=== PATIENT | female | born 1965 | race Caucasian/White ===

== ENCOUNTER 2017-03-06 14:12 | Inpatient (IN) ==
[2017-03-06] MEDS ORDERED: IOPAMIDOL 100 ML BOTTLE IV ONE (14:13)
--- NOTE | 2017-03-06 14:31 | Cat Scan Report ---
History: Acute stroke symptoms Findings: The brain was imaged without contrast at 2.5 mm intervals. There is a moderate amount of densely calcified plaque in the cavernous portions of both internal carotids. There is a small calcified plaque in the left vertebral artery at the level of the foramen magnum. There is a moderate size acute nonhemorrhagic infarct in the left parietal lobe. It measures approximately 2.7 x 4.3 cm. There is effacement of the sulci and slight flattening along the lateral wall of the HR the left lateral ventricle. No other infarct is seen. There is no hemorrhage. Patient has age-related degenerative changes with atrophy in the frontal and temporal lobes. Impression: Moderate size acute infarct in the left parietal lobe Dr. Mejía was called with the results at 2:27 PM Interpreted and Authenticated by: Justin Bonilla 03/06/17
[2017-03-06 14:44] LABS: Basophils # (Auto) 0.1 K/mcL (0.0-0.3); Basophils % (Auto) 0.5 % (0.0-2.0); Eosinophils # (Auto) 0.3 K/mcL (0.0-0.7); Eosinophils % (Auto) 2.4 % (0.0-7.0); Granulocytes % (Auto) 53.4 % (38.0-78.0); Lymphocytes % (Auto) 37.6 % (15.5-49.0); Mean Cell Volume 99.1 fL (80.0-100.0); Mean Corpuscular Hemoglobin 33.7 pg (26.0-34.0); Monocytes # (Auto) 0.8 K/mcL (0.1-0.9); Monocytes % (Auto) 6.1 % (1.0-12.0); Platelet Count 266 K/mcL (140-440); RBC 3.68 M/mcL (4.00-5.20)
[2017-03-06 15:03] LABS: ALT/SGPT 19 U/l (0-40); Albumin 3.4 gm/dL (3.2-5.2); Alkaline Phosphatase 105 U/L (39-117); Blood Urea Nitrogen 16 mg/dl (6-20)
[2017-03-06] MEDS ORDERED: LORazepam 2 MG/ML VIAL IV PRN (15:50)
[2017-03-06] MEDS ORDERED: LORazepam 2 MG/ML VIAL IV ONE (16:47)
[2017-03-06] MEDS ORDERED: diphenhydrAMINE 50 MG/ML VIAL ONE (17:04)
[2017-03-06] MEDS ORDERED: diphenhydrAMINE 50 MG/ML VIAL IV ONE (17:11)
--- NOTE | 2017-03-06 18:01 | Cat Scan Report ---
History: Stroke symptoms with expressive aphasia Findings: Nonionic contrast was injected. Arterial phase images were acquired from the aortic arch through the brain. Sagittal and coronal reformats along with MIP images were created separately of the head and neck. Neck: Aortic arch is normal in caliber and there is no aneurysm or dissection. There are a few scattered plaques at the origins of the left common carotid and subclavian artery. The innominate artery is normal. There is a large amount of calcified plaque in the right carotid bifurcation. This is causing a 75% stenosis at the origin of the right internal carotid and less than 25% stenosis origin of the external carotid. The mid distal right internal carotid are normal. There is mild plaque formation in the left carotid bifurcation. This is not causing significant stenosis of the internal are external carotids. The right vertebral artery is hypoplastic. The left vertebral artery is relatively small but normal in caliber. No plaque formation is seen within the vertebral arteries and there is no evidence of dissection. Patient has a partially calcified adenoma in the right adrenal gland. Head: The intracranial portions of both vertebral arteries as well as the basilar artery are hypoplastic. The basilar artery is less than 2 mm in diameter. The cerebellar arteries are patent. The peel one segments of both posterior cerebral arteries are hypoplastic. There are patent posterior communicating arteries which provide most of the blood flow to the posterior cerebral arteries. The cavernous portions of both internal carotids have eccentric plaques along the chua. These are not causing significant stenosis. The anterior and middle cerebral arteries are normal in caliber and there is no evidence of thrombosis or stenosis. On the preceding unenhanced head CT a moderate size infarct is detected in the left parietal lobe. There has been partial reperfusion of brain parenchyma in this region. However, this portion of the brain is relatively hypovascular compared to the contralateral right parietal lobe. Impression: Hypoperfusion of the left parietal lobe due to diminished circulation in the posterior third order branches of the left middle cerebral artery. 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 Mejía was called with results Interpreted and Authenticated by: Justin Bonilla 03/06/17
[2017-03-06] MEDS ORDERED: ASPIRIN 81 MG TAB.CHEW CHEWED ONE (19:55)
--- NOTE | 2017-03-06 19:57 | Emergency Department Note ---
Neuro HPI - General Chief Complaint: Stroke Symptoms Stated Complaint: Stroke symptoms. Expressive aphasia. Time Seen by Provider: 03/06/17 14:25 Source: patient Mode of arrival: ambulatory Limitations: no limitations - History of Present Illness HPI Narrative: 51-year-old female HIV patient who was last seen normal last evening came in today for focal deficit of expressive aphasia with her brother. He actually reports that she has been acting strangely for the last few days-he has been moving her down from [facility] [place]. Apparently she went a little crazy and gambled away her entire rent money. She was still talking normally last night but then today when he went to check on her she could not answer questions appropriately, having trouble word finding and was confused. I am unable to get meaningful interview or review of systems from her as she cannot answer questions directly. She is having a lot of trouble following directions as well. However she is walking and moving around without any difficulty; sitting up playing on her phone etc. We did request records from [facility] as well as [facility] [place]-much of her history is from the records On Anticoagulants: No - Related Data Home Medications: Home Medications Medication Instructions Recorded Confirmed No Known Home Meds [No Known Home 03/06/17 03/06/17 Meds] Allergies/Adverse Reactions: Allergies Allergy/AdvReac Type Severity Reaction Status Date / Time No Known Drug Allergies Allergy Unverified 03/06/17 17:24 Review of Systems Limitations: ROS unobtainable due to patients medical condition Past Medical History - Past Medical History Attestation: Yes: The following information was validated with the patient. Medical history: Reports: HIV/AIDS, other (Chronic pain) Surgical history ED: Reports: hysterectomy - Social History smoking status: Current every day smoker Physical Exam Overweight female no acute distress. Normocephalic atraumatic. Conjunctive are clear sclerae nonicteric. No nasal discharge or congestion. Oropharynx is pink and moist. Neck is supple without lymphadenopathy or thyromegaly. No carotid bruit. Heart is regular rate and rhythm no murmurs appreciated. Lungs clear to auscultation bilaterally without wheezes rales rhonchi or respiratory distress. Abdomen soft nontender nondistended. No pedal edema. +2 radial pulse. No dysarthria but she does have expressive aphasia-significant trouble with word finding but she is able to answer yes or no questions. Initially she could not follow commands but this gradually improved over the course of her hospital stay. No facial asymmetry. Cranial nerves II through XII are grossly intact. Normal strength in all 4 appendages. Unable to fully evaluate sensation secondary to expressive aphasia. NIH score was 4 and ABCD score was 3 - General Limitations: no limitations Course Vital Signs Temperature 98.4 F 03/06/17 14:12 Pulse Rate 71 03/06/17 14:12 Respiratory Rate 18 03/06/17 14:12 Blood Pressure 105/63 03/06/17 14:12 Pulse Oximetry (%) 97 03/06/17 14:12 Temperature 98.4 F 03/06/17 14:12 Pulse Rate 67 03/06/17 15:46 Respiratory Rate 16 03/06/17 19:03 Blood Pressure 123/100 03/06/17 19:01 Pulse Oximetry (%) 94 03/06/17 15:46 Neuro Symptoms/Deficit - Lab Data Lab results reviewed: Yes I reviewed the patient's lab results. Result diagrams: 03/06/17 14:21 03/06/17 14:20 Lab Results 03/06/17 03/06/17 03/06/17 Range/Units 14:20 14:21 14:21 WBC 13.4 H (4.5-11.0) K/mcL RBC 3.68 L (4.00-5.20) M/mcL Hgb 12.4 (12.0-15.0) g/dL Hct 36.5 (36.0-48.0) % POC Hct 38.0 (36.0-48.0) % MCV 99.1 (80.0-100.0) fL MCH 33.7 (26.0-34.0) pg MCHC 34.0 (31.0-36.0) g/dL RDW 16.0 H (11.5-14.5) % Plt Count 266 (140-440) K/mcL MPV 8.1 (7.4-10.4) fL Gran % 53.4 (38.0-78.0) % Lymph % (Auto) 37.6 (15.5-49.0) % [place] % (Auto) 6.1 (1.0-12.0) % Eos % (Auto) 2.4 (0.0-7.0) % Baso % (Auto) 0.5 (0.0-2.0) % Gran # 7.2 (1.8-8.0) K/mcL Lymph # (Auto) 5.0 H (1.5-4.8) K/mcL [place] # (Auto) 0.8 (0.1-0.9) K/mcL Eos # (Auto) 0.3 (0.0-0.7) K/mcL Baso # (Auto) 0.1 (0.0-0.3) K/mcL POC PT 14.8 H (11.9-14.5) sec POC INR 1.2 (0.9-1.2) APTT 35 (20-37) sec POC Sodium 139 (133-145) mmol/L Sodium 140 (133-145) mmol/L POC Potassium 4.0 (3.3-5.1) mmol/L Potassium 4.2 (3.3-5.1) mmol/L POC Chloride 103 (96-108) mmol/L Chloride 101 (96-108) mmol/L Carbon Dioxide 27 (22-30) mmol/L POC Total CO2 27 (22-30) mmol/L Anion Gap 12.0 (8-16) POC BUN 16 (6-20) mg/dl BUN 16 (6-20) mg/dl Creatinine 0.7 (0.6-1.1) mg/dl POC Creatinine 0.8 (0.6-1.1) mg/dl GFR Calculation 99 Glucose 125 H (70-105) mg/dL POC Glucose 121 H (70-105) mg/dL Calcium 8.5 L (8.6-10.4) mg/dl POC WB Ioniz Calcium 1.15 L (1.16-1.32) mmol/L Total Bilirubin 0.3 (0.0-1.0) mg/dL AST 20 (0-37) U/l ALT 19 (0-40) U/l Alkaline Phosphatase 105 (39-117) U/L Troponin T (0-0.03) ng/ml Total Protein 6.7 (5.9-8.4) gm/dL Albumin 3.4 (3.2-5.2) gm/dL Globulin 3.3 (2.2-3.7) gm/dL Albumin/Globulin Ratio 1.0 (1.0-2.3) 03/06/17 Range/Units 14:21 WBC (4.5-11.0) K/mcL RBC (4.00-5.20) M/mcL Hgb (12.0-15.0) g/dL Hct (36.0-48.0) % POC Hct (36.0-48.0) % MCV (80.0-100.0) fL MCH (26.0-34.0) pg MCHC (31.0-36.0) g/dL RDW (11.5-14.5) % Plt Count (140-440) K/mcL MPV (7.4-10.4) fL Gran % (38.0-78.0) % Lymph % (Auto) (15.5-49.0) % [place] % (Auto) (1.0-12.0) % Eos % (Auto) (0.0-7.0) % Baso % (Auto) (0.0-2.0) % Gran # (1.8-8.0) K/mcL Lymph # (Auto) (1.5-4.8) K/mcL [place] # (Auto) (0.1-0.9) K/mcL Eos # (Auto) (0.0-0.7) K/mcL Baso # (Auto) (0.0-0.3) K/mcL POC PT (11.9-14.5) sec POC INR (0.9-1.2) APTT (20-37) sec POC Sodium (133-145) mmol/L Sodium (133-145) mmol/L POC Potassium (3.3-5.1) mmol/L Potassium (3.3-5.1) mmol/L POC Chloride (96-108) mmol/L Chloride (96-108) mmol/L Carbon Dioxide (22-30) mmol/L POC Total CO2 (22-30) mmol/L Anion Gap (8-16) POC BUN (6-20) mg/dl BUN (6-20) mg/dl Creatinine (0.6-1.1) mg/dl POC Creatinine (0.6-1.1) mg/dl GFR Calculation Glucose (70-105) mg/dL POC Glucose (70-105) mg/dL Calcium (8.6-10.4) mg/dl POC WB Ioniz Calcium (1.16-1.32) mmol/L Total Bilirubin (0.0-1.0) mg/dL AST (0-37) U/l ALT (0-40) U/l Alkaline Phosphatase (39-117) U/L Troponin T < 0.01 (0-0.03) ng/ml Total Protein (5.9-8.4) gm/dL Albumin (3.2-5.2) gm/dL Globulin (2.2-3.7) gm/dL Albumin/Globulin Ratio (1.0-2.3) - Radiology Data Radiology results reviewed: Yes I reviewed the patient's radiology results. CT scan of the head without contrast shows a left parietal lobe infarct measuring 2.7 x 4.3 cm or moderate in size Follow-up CT angiogram of the neck and head shows hypoplastic cerebral arteries multiple, also third order arteries left MCA decreased perfusion in this area. Additionally 75% stenosis seen at internal carotid artery on the right. - EKG Data EKG attestation: Yes I reviewed and interpreted this EKG. EKG results narrative: EKG shows a rate of 70 normal sinus rhythm without evidence of ischemia Disposition Pt seen by [employer]ER/PA only: No Clinical Impression: CVA (cerebral vascular accident) Qualifiers: CVA mechanism: stenosis Precerebral and cerebral artery: unspecified cerebral artery Qualified Code(s): I63.50 - Cerebral infarction due to unspecified occlusion or stenosis of unspecified cerebral artery Summary: Initially worked up for acute stroke because of symptoms of expressive aphasia. Initially discussed left parietal stroke with Dr. Green, tele-stroke neurologist , who advised us to get the CTA Found to have left parietal lobe stroke moderate size likely secondary to hypoplastic cerebral arteries and decreased perfusion of the left MCA third third order cerebral arteries seen on CTA Discussed scenario with Dr. Horvath, another tele-stroke neurologist who took over for Dr. Green, she advised this patient was not eligible for intervention and that therefore we should keep her here in the hospital and do further workup I then discussed the scenario with Dr. Vu, our hospitalist who agreed to accept the patient for further workup and care. Patient was given aspirin per Dr. Baez recommendations Disposition: Xfer As Inpt ([facility]) Condition: Fair Referrals: Palma Mullen MD [Primary Care Provider] -
[2017-03-06 20:24] LABS: HDL Cholesterol 44 mg/dl (>40); LDL Cholesterol,Calculated 111 mg/dl (SEE CHART)
[2017-03-06 20:52] LABS: Appearance,Urine CLEAR; Bacteria,Urine 0 /hpf (0); Bilirubin,Urine NEG (NEG); Color,Urine YELLOW; Glucose,Urine (UA) NEGATIVE (NEG); Leukocyte Esterase,Urine NEG /uL (NEG); Mucus,Urine FEW /hpf (0); Nitrate,Urine NEG (NEG); Protein,Urine NEG (NEG); Specific Gravity,Urine 1.042 (1.000-1.035); Urine Blood 0.03 mg/dL (<0.03); Urine RBC 7 /hpf (0-1); Urine Squamous Epithelial Cell 1 /hpf (0-4); Urine WBC 1 /hpf (0-4); Urobilinogen,Urine NEG (NEG)
[2017-03-06] MEDS ORDERED: LORazepam 2 MG/ML VIAL IM ONE (21:25)
--- NOTE | 2017-03-06 21:37 | Internal Med History&Physical ---
Medical - H&P: HPI Patient information: Note initiated : 03/06/17 at 9:32 pm Service Date, if different from initiated Date: [] Patient: Cindy Almeida a 51 y/o F admitted on for Stroke Symptoms, Expressive Aphasia. Chief Complaint: [] History of present illness: Ms. Almeida is a 51 year old Female with h/o HIV/ AIDS, chr back pain issues, presented to the ER this afternoon after being unable to comprehend and unable to express her self. The patient brother was the primary history give to the ER. The patient was able to answer some questions but was mostly unable to provide a meaningful history. According to chart review, the patient has been more confused and not her self over the last 3-4 days, she gambled away a significant amount. Her brother was called when someonme noted that she was not making much sense on the telephone. The patient was therefore brought to the ER for further evaluation. In the ER she had a CT head done which showed acute CVA in the Moderate size acute infarct in the left parietal lobe, tele stroke was called and they did not feel pt needed tpa or any intervention. They did recommend CT Angio neck and head which showed Hypoperfusion of the left parietal lobe due to diminished circulation in the posterior third order branches of the left middle cerebral artery. 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 would benefit from outpatient IR/ Vascular eval for ICA stenosis. The patient was therefore admitted to the hospital for further evaluation The patient is ambulatory and does obey commands, moves around at will. The patient has h/o some cancer, and was followed by oncology, not sure what type, but one note mentioned hodgkins, She was on dilaudid for chr back pain which was given to her by JANETH albert unobtainable: due to mental status Medical - H&P: PMH Medical history: HIV/AIDs Chr back pain neuropathy hodgkins lymphoma Surgical history: hystrectemy Pertinent family history: unable to review Social history: lives by self smoker not sure of etoh/ substance issue pt did not report Medical - H&P: Meds Home Medications Medication Instructions Recorded Confirmed Type No Known Home Meds [No Known Home 03/06/17 03/06/17 History Meds] Allergies Allergy/AdvReac Type Severity Reaction Status Date / Time No Known Drug Allergies Allergy Unverified 03/06/17 17:24 Medical - H&P: Exam - Constitutional Vitals: Temp Pulse Resp BP Pulse Ox 98.4 F 67 16 123/100 94 03/06/17 14:12 03/06/17 15:46 03/06/17 19:03 03/06/17 19:01 03/06/17 15:46 Exam: GENERAL: The patient is a well-developed, well-nourished in no apparent distress. Is alert and oriented x2 (name and place once told its hospital) . VITAL SIGNS: Reviewed and as noted elsewhere. HEENT: Head is normocephalic and atraumatic. Extraocular muscles are intact. Pupils are equal, round, and reactive to light. Nares appeared normal. Mouth appears any without lesions. Mucous membranes are moist. NECK: Normal to inspection, Supple, No lymphadenopathy or thyromegaly. LUNGS: Air entry equal on both sides, no wheezing, crackles or rhonchi noted. No accessory muscles of respiration HEART: Regular rate and rhythm normal, S1 and S2 heard, no Gallop, S3 or Rub Noted, No Gross murmur heard. ABDOMEN: Soft, nontender, and nondistended. Positive bowel sounds. No hepatosplenomegaly was noted. EXTREMITIES: No cyanosis, clubbing, rash, lesions or edema. NEUROLOGIC: Cranial nerves II through XII are grossly intact. Motor and Sensory System Grossly Intact PSYCHIATRIC: anxious/ agitated behavior inappropriate behavior . SKIN: No ulceration or wounds noted, No jaundice, No rash noted. Medical - H&P: Reslt - Labs CBC & Chem 7: 03/06/17 14:21 03/06/17 14:20 Labs: Short CBC 03/06/17 Range/Units 14:21 WBC 13.4 H (4.5-11.0) K/mcL Hgb 12.4 (12.0-15.0) g/dL Hct 36.5 (36.0-48.0) % Plt Count 266 (140-440) K/mcL BMP 03/06/17 14:20 Sodium 140 Potassium 4.2 Chloride 101 Carbon Dioxide 27 BUN 16 Creatinine 0.7 Glucose 125 H Calcium 8.5 L Cardiac Enzymes 03/06/17 Range/Units 14:21 Troponin T < 0.01 (0-0.03) ng/ml Liver Function 03/06/17 Range/Units 14:20 Total Bilirubin 0.3 (0.0-1.0) mg/dL AST 20 (0-37) U/l ALT 19 (0-40) U/l Alkaline Phosphatase 105 (39-117) U/L Albumin 3.4 (3.2-5.2) gm/dL Urine 03/06/17 Range/Units 20:07 Urine Color Yellow Urine Appearance Clear Urine pH 5.0 (5.0-9.0) Ur Specific [place] 1.042 H (1.000-1.035) Urine Protein Neg (NEG) mg/dL Urine Glucose (UA) Negative (NEG) mg/dL Medical - H&P: A/P (1) HIV disease Current visit: Yes Status: Acute (2) Chronic pain Current visit: Yes Status: Acute (3) CVA (cerebral vascular accident) Current visit: Yes Status: Acute - Narrative A/P Narrative: A/P CVA: Acute left parietal stroke on CT, Tele stroke advised workup here and noted no indication for transfer. Patient to be monitored on tele, EKG is NSR, Echo ordered, A1c, LDL and TSH check. 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 She was given asa 324 in the ER, will start her on asa 81, start on statin, check lipid and a1c adn tsh, get MRI of head without and with contrast in light of h/o lymphoma, HIV HIV: supposed to be on haart, will resume once dose verified, check cd4 counts. Unable to tell me who her ID physician is AMS: secondary to CVA vs HIV related. if MRI does not confirm CVA, will consider LP. Ativan prn to keep pt in room, ok for soft restraints as patient is agitated and trieds to remove medical leads. DVT hep sq Diet regular Full Code. Medical - H&P: Qual - Stroke Symptom Onset Unknown: No
[2017-03-06] MEDS ORDERED: OLANZapine 5 MG TABLET PO ONE ×2 (21:41→22:01)
[2017-03-06] MEDS ORDERED: NALOXONE HCL 0.4 MG/ML VIAL IV PRN (22:01)
[2017-03-06] MEDS ORDERED: IPRATROPIUM/ALBUTEROL 3 ML AMPUL.NEB NEB PRN (22:01)
[2017-03-06] MEDS ORDERED: oxyCODONE/APAP 5/325MG TABLET PO PRN (22:01)
[2017-03-06] MEDS ORDERED: ONDANSETRON 4 MG/2 ML VIAL IV PRN (22:01)
[2017-03-06] MEDS ORDERED: OLANZapine 2.5 MG TABLET PO ONE (22:01)
[2017-03-06] MEDS: HEPARIN 5,000 UNIT/ML VIAL SQ SCH (22:38)
[2017-03-06] MEDS: ATORVASTATIN 20 MG TABLET PO SCH (22:38)
[2017-03-07 01:41] LABS: Estimated Average Glucose(eAG) 105 mg/dL; Hemoglobin A1C 5.3 % HGB (4.0-6.0)
[2017-03-07 06:02] LABS: Basophils # (Auto) 0 K/mcL (0.0-0.3); Basophils % (Auto) 0.3 % (0.0-2.0); Eosinophils # (Auto) 0.3 K/mcL (0.0-0.7); Eosinophils % (Auto) 3.2 % (0.0-7.0); Granulocytes % (Auto) 52.5 % (38.0-78.0); Lymphocytes # (Auto) 3.6 K/mcL (1.5-4.8); Lymphocytes % (Auto) 35.7 % (15.5-49.0); Mean Cell Volume 99.8 fL (80.0-100.0); Mean Corpuscular Hemoglobin 33.9 pg (26.0-34.0); Monocytes # (Auto) 0.8 K/mcL (0.1-0.9); Monocytes % (Auto) 8.3 % (1.0-12.0); Platelet Count 270 K/mcL (140-440); RBC 3.61 M/mcL (4.00-5.20); Red Cell Distribution Width 15.5 % (11.5-14.5)
[2017-03-07 06:35] LABS: ALT/SGPT 20 U/l (0-40); Albumin 3.5 gm/dL (3.2-5.2); Albumin/Globulin Ratio 1.2 (1.0-2.3); Alkaline Phosphatase 101 U/L (39-117); Bilirubin,Direct < 0.2 mg/dL (0.0-0.3); Blood Urea Nitrogen 17 mg/dl (6-20); Gamma Glutamyl Transpeptidase 27 U/L (5-36); HDL Cholesterol 41 mg/dl (>40); LDL Cholesterol,Calculated 113 mg/dl (SEE CHART); Magnesium 2.3 mg/dL (1.6-2.5); Uric Acid 7.4 mg/dL (2.5-8.0)
[2017-03-07] MEDS: GABAPENTIN 300 MG CAPSULE PO SCH ×4 (09:52→22:25)
[2017-03-07] MEDS: PANTOPRAZOLE 40 MG TABLET PO SCH (09:52)
[2017-03-07] MEDS: STRIBILD TABLET PO SCH ×2 (09:52→13:27)
[2017-03-07] MEDS: HEPARIN 5,000 UNIT/ML VIAL SQ SCH ×2 (09:52→19:33)
[2017-03-07] MEDS: ASPIRIN 81 MG TAB.CHEW PO SCH (09:52)
[2017-03-07] MEDS: SERTRALINE 50 MG TABLET PO SCH (09:52)
--- NOTE | 2017-03-07 10:08 | Magnetic Resonance Report ---
CLINICAL INFORMATION: Stroke with expressive aphasia and prior history of Hodgkin's disease COMPARISON: Head CT on 03/06/17 TECHNIQUE: Sagittal T1 FLAIR, axial diffusion ADC, T1 FLAIR, T2 FLAIR propeller, T2 propeller gradient, T1 post Magnevist and coronal T1 FLAIR post Magnevist images were acquired. FINDINGS: Patient has a large acute/subacute nonhemorrhagic infarct in the distribution of the left middle cerebral artery. There is predominantly involving the parietal lobe but also extends into the anterior lateral aspect of the left occipital lobe and the left temporal lobe. In addition there is involvement in the insular cortex. It measures 3 cm in width and 10 cm in length. Infarct is best seen on the diffusion-weighted sequences. The extent of the infarct is much larger than was appreciated on the prior head CT. The infarct involves both cortex and subcortical white matter. There is no significant mass effect due to the edema. No herniation is present. No other infarct is present. There is no evidence of a mass. The ventricles and cisterns are normal. Postcontrast views showed no abnormal enhancement within the brain. IMPRESSION: Large nonhemorrhagic infarct in the distribution of the left middle cerebral artery. This involves Wernicke's speech center which would account for the aphasia. Interpreted and Authenticated by: Justin Bonilla 03/07/17
--- NOTE | 2017-03-07 11:29 | XRay Report ---
HISTORY: Reason for Exam:cva, leukocytosis FINDINGS: There is a small streaky infiltrate in the inferior segment of the lingula. A reticular pattern is seen in the lung parenchyma in the right upper lobe which is probably due to interstitial fibrosis. No pleural effusion is present and there is no apparent adenopathy. The heart size and pulmonary vasculature are normal. IMPRESSION: Mild atelectasis or pneumonia in the lingula Interpreted and Authenticated by: Justin Bonilla 03/07/17
--- NOTE | 2017-03-07 13:49 | Internal Med Progress Note ---
Medical - PN: Subj Patient information: Note initiated : 03/07/17 at 1:49 pm Service Date, if different from initiated Date: [] Patient: Cindy Almeida a 51 y/o F admitted on 03/06/17 for Stroke Symptoms, Expressive Aphasia. Chief Complaint: [] Interval history: Ms. Almeida is a 51 year old Female with h/o HIV/ AIDS, chr back pain issues, presented to the ER this afternoon after being unable to comprehend and unable to express her self. The patient brother was the primary history give to the ER. The patient was able to answer some questions but was mostly unable to provide a meaningful history. According to chart review, the patient has been more confused and not her self over the last 3-4 days, she gambled away a significant amount. Her brother was called when someonme noted that she was not making much sense on the telephone. The patient was therefore brought to the ER for further evaluation. In the ER she had a CT head done which showed acute CVA in the Moderate size acute infarct in the left parietal lobe, tele stroke was called and they did not feel pt needed tpa or any intervention. They did recommend CT Angio neck and head which showed Hypoperfusion of the left parietal lobe due to diminished circulation in the posterior third order branches of the left middle cerebral artery. 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 would benefit from outpatient IR/ Vascular eval for ICA stenosis. The patient was therefore admitted to the hospital for further evaluation The patient is ambulatory and does obey commands, moves around at will. The patient has h/o some cancer, and was followed by oncology, not sure what type, but one note mentioned hodgkins, She was on dilaudid for chr back pain which was given to her by soham saez, march 07: patient seen examined, overnight did well, no more agitation. Her home meds resumed MRI done today shows IMPRESSION: Large nonhemorrhagic infarct in the distribution of the left middle cerebral artery. This involves [facility] speech [facility] which would account for the aphasia. Case discussed with patients brothers, who note the patient has been having increased paranoia for many months but has not been her self over last few days , increased mess in the house, gambled away a lot at the casino which is not her usual self. The patient was eating food and did not report any complaints, was able to follow commands, but still had difficulty in naming places and objects, Pertinent ROS: Denies headache, dizziness Denies chest pain, palpitations Denies cough or shortness of breath Denies abdominal pain, nausea or vomiting. - Constitutional Vitals: Vital Signs Temp Pulse Resp BP Pulse Ox 99.9 F H 75 20 150/73 95 03/07/17 13:26 03/07/17 08:00 03/07/17 12:00 03/07/17 12:00 03/07/17 12:00 Period Temp Pulse Resp BP Sys/Mora Pulse Ox Last 24 Hr 97.2 F-99.9 F 65-75 10 94-150/52-122 91-98 Intake and Output 03/06/17 03/07/17 03/07/17 21:59 05:59 13:59 Intake Total 30 / 30 240 / 240 Output Total 475 / 475 Balance -445 / -445 240 / 240 Weight 170 lb 169 lb 169 lb Patient Weight 03/08/17 05:59 Weight 169 lb Intake & Output: Intake & Output 03/06/17 03/07/17 03/07/17 21:59 05:59 13:59 Intake Total 30 / 30 240 / 240 Output Total 475 / 475 Balance -445 / -445 240 / 240 Weight 170 lb 169 lb 169 lb Intake: Oral 30 / 30 240 / 240 Output: Void Amount 475 / 475 Other: Meal Breakfast Percent of Meal Consumed 100% # Voids 1 1 Exam: Constitutional; Afebrile, cooperative, alert, not in distress. Eyes- No icterus, , No periorbital swelling Ears- Ext ear normal, hearing normal to conversation. Neck- Midline trachea, supple Respiratory system: Air Entry equal on both sides, No crackles or wheezing, no rhonchi. CVS- Rate rhythm regular, S1,S2 heard, no gallop, no rub. 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 Medical - PN: Obj Da - Labs CBC & Chem 7: 03/07/17 04:50 03/07/17 04:50 Labs: Abnormal Lab Results 03/07/17 03/07/17 03/07/17 04:50 04:50 04:50 WBC RBC 3.61 L RDW 15.5 H Lymph # (Auto) POC PT Glucose POC Glucose Calcium 8.5 L POC WB Ioniz Calcium Triglycerides 224 H 224 H LDL Cholesterol, Calc 113 H Non-HDL Cholesterol 157 H Ur Specific [place] Urine Occult Blood Urine RBC 03/06/17 03/06/17 03/06/17 20:07 14:21 14:21 WBC 13.4 H RBC 3.68 L RDW 16.0 H Lymph # (Auto) 5.0 H POC PT 14.8 H Glucose POC Glucose Calcium POC WB Ioniz Calcium Triglycerides LDL Cholesterol, Calc Non-HDL Cholesterol Ur Specific [place] 1.042 H Urine Occult Blood 0.03 A Urine RBC 7 H 03/06/17 03/06/17 14:20 14:20 WBC RBC RDW Lymph # (Auto) POC PT Glucose 125 H POC Glucose 121 H Calcium 8.5 L POC WB Ioniz Calcium 1.15 L Triglycerides 222 H LDL Cholesterol, Calc 111 H Non-HDL Cholesterol 155 H Ur Specific [place] Urine Occult Blood Urine RBC Meds: Medications Acetaminophen (Tylenol) 650 mg PO Q6HP PRN PRN Reason: PAIN/FEVER > 101 Albuterol/Ipratropium (Duoneb) 3 ml NEB Q4HP PRN PRN Reason: Shortness Of Breath Or Wheezing Aspirin (Aspirin) 81 mg PO DAILY [facility] Last Admin: 03/07/17 09:52 Dose: 81 mg Atorvastatin Calcium (Lipitor) 40 mg PO HS [facility] Last Admin: 03/06/17 22:38 Dose: Not Given Gabapentin (Neurontin) 300 mg PO Q8 [facility] Last Admin: 03/07/17 09:52 Dose: 300 mg Heparin Sodium (Porcine) (Heparin) 5,000 unit SQ Q12 [facility] Last Admin: 03/07/17 09:52 Dose: 5,000 unit Hydromorphone HCl (Dilaudid) 4 mg PO Q4-6HP PRN PRN Reason: Pain Lorazepam (Ativan) 1 mg IV Q2-4HP PRN PRN Reason: ANXIETY/SEDATION Naloxone HCl (Narcan) 0.1 mg IV Q2MIN PRN PRN Reason: Opiate Reversal Ondansetron HCl (Zofran) 4 mg IV Q4HP PRN PRN Reason: Nausea And Vomiting Pantoprazole Sodium (Protonix) 40 mg PO QAMAC [facility] Last Admin: 03/07/17 09:52 Dose: 40 mg Stribild Tablet 1 dose PO DAILY [facility] Last Admin: 03/07/17 13:27 Dose: 1 dose Quetiapine Fumarate (Seroquel) 50 mg PO HS [facility] Sertraline HCl (Zoloft) 200 mg PO DAILY [facility] Last Admin: 03/07/17 09:52 Dose: 200 mg Medical - PN: A/P - Time Spent With Patient Total time spent is greater than 50% in coordination of care (as documented) at patient's floor/unit and/or counseling patient: (1) HIV disease Status: Acute Current Visit: No (2) Chronic pain Status: Acute Current Visit: No (3) CVA (cerebral vascular accident) Status: Acute Current Visit: No - Narrative A/P Narrative: A/P CVA: Acute left parietal stroke on CT, and much larger CVA on MRI, no edema, no secondary hemorrhage noted. pt stable, needs rehab, on st atin, a1c is ok, started on ASA. She will benefit from pt, ot and st HIV: supposed to be on haart, dose resumed await cd4 counts. Unable to tell me who her ID physician is AMS: secondary to CVA vs HIV related. stable at this point, h/o paranoia weeks before the patient symptoms started. hiv dementia? right ica stenosis: outpatient follow up with IR/ VA[facility]. DVT hep sq Diet regular Full Code. Medical - PN: Qual - Stroke Onset of Symptoms Date: 03/03/17 Onset of Symptoms Time: 00:00 Symptom Onset Unknown: No
[2017-03-07] MEDS: ACETAMINOPHEN 325 MG TABLET PO PRN (17:54)
[2017-03-07] MEDS ORDERED: NICOTINE 14 MG PATCH ONE (19:23)
[2017-03-07] MEDS: QUEtiapine 25 MG TABLET PO SCH (19:34)
[2017-03-07] MEDS: LORazepam 2 MG/ML VIAL IV PRN ×2 (19:35→20:58)
[2017-03-07] MEDS: ATORVASTATIN 20 MG TABLET PO SCH (20:17)
[2017-03-07] MEDS: HYDROmorphone 2 MG TABLET PO PRN (20:17)
[2017-03-08] MEDS: HYDROmorphone 2 MG TABLET PO PRN ×4 (03:31→21:23)
[2017-03-08] MEDS: GABAPENTIN 300 MG CAPSULE PO SCH ×3 (05:43→21:23)
[2017-03-08 06:34] LABS: Basophils # (Auto) 0 K/mcL (0.0-0.3); Basophils % (Auto) 0.4 % (0.0-2.0); Eosinophils # (Auto) 0.3 K/mcL (0.0-0.7); Eosinophils % (Auto) 2.6 % (0.0-7.0); Granulocytes % (Auto) 52.1 % (38.0-78.0); Lymphocytes # (Auto) 3.6 K/mcL (1.5-4.8); Lymphocytes % (Auto) 37.1 % (15.5-49.0); Mean Cell Volume 99.6 fL (80.0-100.0); Mean Corpuscular HGB Conc 33.8 g/dL (31.0-36.0); Mean Corpuscular Hemoglobin 33.7 pg (26.0-34.0); Monocytes # (Auto) 0.8 K/mcL (0.1-0.9); Monocytes % (Auto) 7.8 % (1.0-12.0); Platelet Count 296 K/mcL (140-440); RBC 3.81 M/mcL (4.00-5.20); Red Cell Distribution Width 15.6 % (11.5-14.5)
[2017-03-08 07:06] LABS: ALT/SGPT 19 U/l (0-40); Albumin 3.6 gm/dL (3.2-5.2); Albumin/Globulin Ratio 1.1 (1.0-2.3); Alkaline Phosphatase 101 U/L (39-117); Bilirubin,Direct < 0.2 mg/dL (0.0-0.3); Blood Urea Nitrogen 16 mg/dl (6-20); Gamma Glutamyl Transpeptidase 28 U/L (5-36); Magnesium 2.2 mg/dL (1.6-2.5); Uric Acid 5.7 mg/dL (2.5-8.0)
[2017-03-08] MEDS: SERTRALINE 50 MG TABLET PO SCH (08:34)
[2017-03-08] MEDS: PANTOPRAZOLE 40 MG TABLET PO SCH (08:34)
[2017-03-08] MEDS: HEPARIN 5,000 UNIT/ML VIAL SQ SCH ×2 (08:34→21:23)
[2017-03-08] MEDS: ASPIRIN 81 MG TAB.CHEW PO SCH (08:34)
[2017-03-08] MEDS: STRIBILD TABLET PO SCH ×2 (08:35→14:30)
[2017-03-08] MEDS: NICOTINE 14 MG PATCH TOPICAL SCH (11:52)
--- NOTE | 2017-03-08 13:05 | Internal Med Progress Note ---
Medical - PN: Subj Patient information: Note initiated : 03/08/17 at 12:58 pm Service Date, if different from initiated Date: [] Patient: Cindy Almeida a 51 y/o F admitted on 03/06/17 for Stroke Symptoms, Expressive Aphasia. Chief Complaint: [] Interval history: Ms. Almeida is a 51 year old Female with h/o HIV/ AIDS, chr back pain issues, presented to the ER this afternoon after being unable to comprehend and unable to express her self. The patient brother was the primary history give to the ER. The patient was able to answer some questions but was mostly unable to provide a meaningful history. According to chart review, the patient has been more confused and not her self over the last 3-4 days, she gambled away a significant amount. Her brother was called when someone noted that she was not making much sense on the telephone. The patient was therefore brought to the ER for further evaluation. In the ER she had a CT head done which showed acute CVA in the Moderate size acute infarct in the left parietal lobe, tele stroke was called and they did not feel pt needed tpa or any intervention. They did recommend CT Angio neck and head which showed Hypoperfusion of the left parietal lobe due to diminished circulation in the posterior third order branches of the left middle cerebral artery. 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 would benefit from outpatient IR/ Vascular eval for ICA stenosis. The patient was therefore admitted to the hospital for further evaluation The patient is ambulatory and does obey commands, moves around at will. The patient has h/o some cancer, and was followed by oncology, not sure what type, but one note mentioned hodgkins, She was on dilaudid for chr back pain which was given to her by soham saez, march 07: patient seen examined, overnight did well, no more agitation. Her home meds resumed MRI done today shows IMPRESSION: Large nonhemorrhagic infarct in the distribution of the left middle cerebral artery. This involves [facility]'s speech center which would account for the aphasia. Case discussed with patients brothers, who note the patient has been having increased paranoia for many months but has not been her self over last few days , increased mess in the house, gambled away a lot at the casino which is not her usual self. The patient was eating food and did not report any complaints, was able to follow commands, but still had difficulty in naming places and objects, March 08: patient seen examined, seems to be better today but still has anomia , able to follow commands, has right side vision deficit but able to do finger counting at 1-2 meters. The patient otherwise does not endorse any acute issues. ST /OT/PT eval tx ongoing. labs reviewed unremarkable on asa and statin. Pertinent ROS: Denies headache, dizziness Denies chest pain, palpitations Denies cough or shortness of breath Denies abdominal pain, nausea or vomiting. - Constitutional Vitals: Vital Signs Temp Pulse Resp BP Pulse Ox 98.3 F 76 20 131/83 98 03/08/17 12:00 03/08/17 08:00 03/08/17 12:00 03/08/17 12:00 03/08/17 12:00 Period Temp Pulse Resp BP Sys/Mora Pulse Ox Last 24 Hr 97.5 F-99.9 F 74-76 16-20 123-192/64-105 95-99 Intake and Output 03/07/17 03/08/17 03/08/17 21:59 05:59 13:59 Intake Total 240 / 240 640 / 640 Balance 240 / 240 640 / 640 Weight 169 lb Intake & Output: Intake & Output 03/07/17 03/08/17 03/08/17 21:59 05:59 13:59 Intake Total 240 / 240 640 / 640 Balance 240 / 240 640 / 640 Weight 169 lb Intake: Oral 240 / 240 640 / 640 Other: # Voids 1 4 Exam: Constitutional; Afebrile, cooperative, alert, not in distress. Eyes- No icterus, , No periorbital swelling Ears- Ext ear normal, hearing normal to conversation. Neck- Midline trachea, supple Respiratory system: Air Entry equal on both sides, No crackles or wheezing, no rhonchi. CVS- Rate rhythm regular, S1,S2 heard, no gallop, no rub. 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 Medical - PN: Obj Da - Labs CBC & Chem 7: 03/08/17 04:10 03/08/17 04:10 Labs: Abnormal Lab Results 03/08/17 03/08/17 03/07/17 04:10 04:10 04:50 WBC RBC 3.81 L RDW 15.6 H Lymph # (Auto) POC PT Glucose POC Glucose Calcium POC WB Ioniz Calcium Phosphorus 2.5 L Triglycerides 194 H 224 H LDL Cholesterol, Calc 113 H Non-HDL Cholesterol 157 H Ur Specific [place] Urine Occult Blood Urine RBC 03/07/17 03/07/17 03/06/17 04:50 04:50 20:07 WBC RBC 3.61 L RDW 15.5 H Lymph # (Auto) POC PT Glucose POC Glucose Calcium 8.5 L POC WB Ioniz Calcium Phosphorus Triglycerides 224 H LDL Cholesterol, Calc Non-HDL Cholesterol Ur Specific [place] 1.042 H Urine Occult Blood 0.03 A Urine RBC 7 H 03/06/17 03/06/17 03/06/17 14:21 14:21 14:20 WBC 13.4 H RBC 3.68 L RDW 16.0 H Lymph # (Auto) 5.0 H POC PT 14.8 H Glucose POC Glucose Calcium POC WB Ioniz Calcium Phosphorus Triglycerides 222 H LDL Cholesterol, Calc 111 H Non-HDL Cholesterol 155 H Ur Specific [place] Urine Occult Blood Urine RBC 03/06/17 14:20 WBC RBC RDW Lymph # (Auto) POC PT Glucose 125 H POC Glucose 121 H Calcium 8.5 L POC WB Ioniz Calcium 1.15 L Phosphorus Triglycerides LDL Cholesterol, Calc Non-HDL Cholesterol Ur Specific [place] Urine Occult Blood Urine RBC Meds: Medications Acetaminophen (Tylenol) 650 mg PO Q6HP PRN PRN Reason: PAIN/FEVER > 101 Last Admin: 03/07/17 17:54 Dose: 650 mg Albuterol/Ipratropium (Duoneb) 3 ml NEB Q4HP PRN PRN Reason: Shortness Of Breath Or Wheezing Aspirin (Aspirin) 81 mg PO DAILY [facility] Last Admin: 03/08/17 08:34 Dose: 81 mg Atorvastatin Calcium (Lipitor) 40 mg PO HS [facility] Last Admin: 03/07/17 20:17 Dose: 40 mg Gabapentin (Neurontin) 300 mg PO Q8 [facility] Last Admin: 03/08/17 05:43 Dose: 300 mg Heparin Sodium (Porcine) (Heparin) 5,000 unit SQ Q12 [facility] Last Admin: 03/08/17 08:34 Dose: 5,000 unit Hydromorphone HCl (Dilaudid) 4 mg PO Q4-6HP PRN PRN Reason: Pain Last Admin: 03/08/17 10:31 Dose: 4 mg Lorazepam (Ativan) 1 mg IV Q2-4HP PRN PRN Reason: ANXIETY/SEDATION Last Admin: 03/07/17 20:58 Dose: 1 mg Naloxone HCl (Narcan) 0.1 mg IV Q2MIN PRN PRN Reason: Opiate Reversal Nicotine (Nicoderm) 14 mg TOPICAL DAILY@1000 [facility] Last Admin: 03/08/17 11:52 Dose: 14 mg Ondansetron HCl (Zofran) 4 mg IV Q4HP PRN PRN Reason: Nausea And Vomiting Pantoprazole Sodium (Protonix) 40 mg PO QAMAC [facility] Last Admin: 03/08/17 08:34 Dose: 40 mg Stribild Tablet 1 dose PO DAILY [facility] Last Admin: 03/08/17 08:35 Dose: Not Given Quetiapine Fumarate (Seroquel) 50 mg PO HS [facility] Last Admin: 03/07/17 19:34 Dose: 50 mg Sertraline HCl (Zoloft) 200 mg PO DAILY [facility] Last Admin: 03/08/17 08:34 Dose: 200 mg Medical - PN: A/P - Time Spent With Patient Total time spent is greater than 50% in coordination of care (as documented) at patient's floor/unit and/or counseling patient: (1) HIV disease Status: Acute Current Visit: No (2) Chronic pain Status: Acute Current Visit: No (3) CVA (cerebral vascular accident) Status: Acute Current Visit: No - Narrative A/P Narrative: A/P CVA: Acute left parietal stroke on CT, and much larger CVA on MRI, no edema, no secondary hemorrhage noted. pt stable, needs rehab, on statin and asa HIV / AIDS supposed to be on haart, dose resumed await cd4 counts. Unable to tell me who her ID physician is AMS: secondary to CVA vs HIV related. stable at this point, h/o paranoia weeks to months before the patient symptoms started. hiv dementia? chr pain: resumed home dosing, pt does not endorse much pain right ica stenosis: outpatient follow up with IR/ Vascular. DVT hep sq Diet regular Full Code. Medical - PN: Qual - Stroke Onset of Symptoms Date: 03/03/17 Onset of Symptoms Time: 00:00 Symptom Onset Unknown: No
[2017-03-08] MEDS: ACETAMINOPHEN 325 MG TABLET PO PRN (19:06)
[2017-03-08] MEDS: ATORVASTATIN 20 MG TABLET PO SCH (21:23)
[2017-03-08] MEDS: QUEtiapine 25 MG TABLET PO SCH (21:24)
[2017-03-09] MEDS: GABAPENTIN 300 MG CAPSULE PO SCH ×3 (05:35→22:10)
[2017-03-09 05:55] LABS: Basophils # (Auto) 0 K/mcL (0.0-0.3); Basophils % (Auto) 0.5 % (0.0-2.0); Eosinophils # (Auto) 0.3 K/mcL (0.0-0.7); Eosinophils % (Auto) 2.9 % (0.0-7.0); Granulocytes % (Auto) 44.2 % (38.0-78.0); Lymphocytes # (Auto) 4.1 K/mcL (1.5-4.8); Lymphocytes % (Auto) 43.6 % (15.5-49.0); Mean Corpuscular HGB Conc 33.5 g/dL (31.0-36.0); Mean Corpuscular Hemoglobin 33.2 pg (26.0-34.0); Monocytes # (Auto) 0.8 K/mcL (0.1-0.9); Monocytes % (Auto) 8.8 % (1.0-12.0); Platelet Count 319 K/mcL (140-440); RBC 3.82 M/mcL (4.00-5.20); Red Cell Distribution Width 15.4 % (11.5-14.5)
[2017-03-09 06:21] LABS: ALT/SGPT 18 U/l (0-40); Albumin 3.4 gm/dL (3.2-5.2); Alkaline Phosphatase 95 U/L (39-117); Bilirubin,Direct < 0.2 mg/dL (0.0-0.3); Blood Urea Nitrogen 18 mg/dl (6-20); Gamma Glutamyl Transpeptidase 29 U/L (5-36); Magnesium 2.1 mg/dL (1.6-2.5); Uric Acid 5.7 mg/dL (2.5-8.0)
[2017-03-09] MEDS: PANTOPRAZOLE 40 MG TABLET PO SCH (07:40)
[2017-03-09] MEDS: HEPARIN 5,000 UNIT/ML VIAL SQ SCH ×2 (08:48→20:17)
[2017-03-09] MEDS: STRIBILD TABLET PO SCH (08:49)
[2017-03-09] MEDS: ASPIRIN 81 MG TAB.CHEW PO SCH (08:49)
[2017-03-09] MEDS: SERTRALINE 50 MG TABLET PO SCH (08:49)
--- NOTE | 2017-03-09 10:14 | Discharge Summary ---
Medical - DS: Prov Patient information: Note initiated : 03/09/17 at 10:04 am Service Date, if different from initiated Date: [] Patient: Cindy Almeida 51 y/o F admitted on 03/06/17 for Stroke Symptoms, Expressive Aphasia. Chief Complaint: [] Date of admission: 03/06/17 21:10 Primary care physician: Palma Mullen Consults: 03/06/17 Consult to Physician [CONS] Stat Comment: Consulting Provider: Tolu Vu Reason For Exam: Physician to Consult Medical - DS: Meds - Discharge Medications Active and Home Medications: Home Medications No Known Home Meds [No Known Home Meds] 03/06/17 [History Confirmed 03/06/17 Last Taken Unknown] Medical - DS: Hosp Hospital course: Mr. Almeida is a 51 year old F - Time Spent with Patient Total time spent providing and/or coordinating discharge services: Medical - DS: Exam - Constitutional Vitals: Vital Signs Temp Pulse Resp BP BP Pulse Ox 03/09/17 08:03 100.5 F H 72 18 186/97 95 03/09/17 05:38 99.7 F H 03/09/17 04:00 98.9 F 18 127/75 95 03/09/17 00:00 18 125/76 95 03/08/17 19:43 98.7 F 20 180/91 98 03/08/17 16:00 97.6 F 20 134/78 98 03/08/17 12:00 98.3 F 20 131/83 98 Intake and Output 03/08/17 03/09/17 03/09/17 21:59 05:59 13:59 Intake Total 240 / 240 Balance 240 / 240 Intake: Oral 240 / 240 Other: Meal Dinner Percent of Meal Consumed 100% Feeding Ability Assist with Tray Set Up # Voids 4 3 # Bowel Movements 0 Weight 169 lb 8 oz Medical - DS: Data Labs on day of discharge: Labs from last 24 hours 03/09/17 03/09/17 04:30 04:30 WBC 9.3 RBC 3.82 L Hgb 12.7 Hct 37.8 MCV 99.0 MCH 33.2 MCHC 33.5 RDW 15.4 H Plt Count 319 MPV 8.5 Gran % 44.2 Lymph % (Auto) 43.6 Dane % (Auto) 8.8 Eos % (Auto) 2.9 Baso % (Auto) 0.5 Gran # 4.1 Lymph # (Auto) 4.1 Dane # (Auto) 0.8 Eos # (Auto) 0.3 Baso # (Auto) 0 Sodium 142 Potassium 4.3 Chloride 103 Carbon Dioxide 26 Anion Gap 13.0 BUN 18 Creatinine 0.7 GFR Calculation 99 Glucose 92 Uric Acid 5.7 Calcium 9.1 Phosphorus 4.0 Magnesium 2.1 Total Bilirubin 0.3 Direct Bilirubin < 0.2 GGT 29 AST 20 ALT 18 Alkaline Phosphatase 95 Lactate Dehydrogenase 185 Total Protein 6.7 Albumin 3.4 Globulin 3.3 Albumin/Globulin Ratio 1.0 Triglycerides 233 H Medical - DS: A/P - Problem Maintenance (1) HIV disease Status: Acute (2) Chronic pain Status: Acute (3) CVA (cerebral vascular accident) Status: Acute Qualifiers: CVA mechanism: stenosis Precerebral and cerebral artery: unspecified cerebral artery Qualified Code(s): I63.50 - Cerebral infarction due to unspecified occlusion or stenosis of unspecified cerebral artery - Follow up Plan Follow up with: Palma Mullen MD [Primary Care Provider] - Prognosis: Fair
[2017-03-09] MEDS: NICOTINE 14 MG PATCH TOPICAL SCH (10:16)
--- NOTE | 2017-03-09 11:06 | XRay Report ---
HISTORY: Reason for Exam:fever and pulmonary infiltrate in the lingula FINDINGS: The mild infiltrate seen in the lingula on 03/07/17 has improved. There appears to be underlying pulmonary fibrosis in the mid and lower two thirds of both lungs. There is no evidence of an underlying mass or adenopathy. No pleural effusion is present. The heart size is normal. IMPRESSION: Resolving pneumonia in the lingula with residual underlying pulmonary fibrosis Interpreted and Authenticated by: Justin Bonilla 03/09/17
[2017-03-09] MEDS: HYDROmorphone 2 MG TABLET PO PRN ×2 (13:17→20:18)
[2017-03-09 14:25] LABS: Appearance,Urine HAZY; Bacteria,Urine 0 /hpf (0); Bilirubin,Urine NEG (NEG); Color,Urine YELLOW; Glucose,Urine (UA) NEGATIVE (NEG); Leukocyte Esterase,Urine 250 /uL (NEG); Mucus,Urine FEW /hpf (0); Nitrate,Urine NEG (NEG); Protein,Urine NEG (NEG); Urine Blood >=1.0 mg/dL (<0.03); Urine RBC 5 /hpf (0-1); Urine Squamous Epithelial Cell 7 /hpf (0-4); Urine Transitional Epi Cells < 1 /hpf (0-2); Urine WBC 17 /hpf (0-4); Urobilinogen,Urine NEG (NEG)
--- NOTE | 2017-03-09 15:18 | Internal Med Progress Note ---
Medical - PN: Subj Patient information: Note initiated : 03/09/17 at 3:15 pm Service Date, if different from initiated Date: [] Patient: Cindy Almeida a 51 y/o F admitted on 03/06/17 for Stroke Symptoms, Expressive Aphasia. Chief Complaint: [] Interval history: Ms. Almeida is a 51 year old Female with h/o HIV/ AIDS, chr back pain issues, presented to the ER this afternoon after being unable to comprehend and unable to express her self. The patient brother was the primary history give to the ER. The patient was able to answer some questions but was mostly unable to provide a meaningful history. According to chart review, the patient has been more confused and not her self over the last 3-4 days, she gambled away a significant amount. Her brother was called when someone noted that she was not making much sense on the telephone. The patient was therefore brought to the ER for further evaluation. In the ER she had a CT head done which showed acute CVA in the Moderate size acute infarct in the left parietal lobe, tele stroke was called and they did not feel pt needed tpa or any intervention. They did recommend CT Angio neck and head which showed Hypoperfusion of the left parietal lobe due to diminished circulation in the posterior third order branches of the left middle cerebral artery. 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 would benefit from outpatient IR/ Vascular eval for ICA stenosis. The patient was therefore admitted to the hospital for further evaluation The patient is ambulatory and does obey commands, moves around at will. The patient has h/o some cancer, and was followed by oncology, not sure what type, but one note mentioned hodgkins, She was on dilaudid for chr back pain which was given to her by soham saez, march 07: patient seen examined, overnight did well, no more agitation. Her home meds resumed MRI done today shows IMPRESSION: Large nonhemorrhagic infarct in the distribution of the left middle cerebral artery. This involves [facility] which would account for the aphasia. Case discussed with patients brothers, who note the patient has been having increased paranoia for many months but has not been her self over last few days , increased mess in the house, [place] a lot [place] which is not her usual self. The patient was eating food and did not report any complaints, was able to follow commands, but still had difficulty in naming places and objects, March 08: patient seen examined, seems to be better today but still has anomia , able to follow commands, has right side vision deficit but able to do finger counting at 1-2 meters. The patient otherwise does not endorse any acute issues. ST /OT/PT eval tx ongoing. labs reviewed unremarkable on asa and statin. march 09: patient was ready for discharge but this AM developed a new fever, her labs were unremarkable, but ua was positive suggestive for UTI, urine culture pending, IV rocephin started iOtherwise patient denies any other complaints can be discharged tomorrow if remains afebrile X ray chest shows resolving infiltrate, Procalcitonin is < 0.05 Pertinent ROS: Denies headache, dizziness Denies chest pain, palpitations Denies cough or shortness of breath Denies abdominal pain, nausea or vomiting. - Constitutional Vitals: Vital Signs Temp Pulse Resp BP Pulse Ox 98.4 F 73 20 140/86 96 03/09/17 12:00 03/09/17 12:00 03/09/17 12:00 03/09/17 12:00 03/09/17 12:00 Period Temp Pulse Resp BP Sys/Mora Pulse Ox Last 24 Hr 97.6 F-100.5 F 72-73 18-20 125-186/75-97 95-98 Intake and Output 03/09/17 03/09/17 03/09/17 05:59 13:59 21:59 Intake Total 360 / 360 Output Total 60 / 60 Balance 300 / 300 Intake & Output: Intake & Output 03/09/17 03/09/17 03/09/17 05:59 13:59 21:59 Intake Total 360 / 360 Output Total 60 / 60 Balance 300 / 300 Intake: Oral 360 / 360 Output: Void Amount 60 / 60 Other: Meal Breakfast Percent of Meal Consumed 100% Feeding Ability Assist with Tray Set Up # Voids 3 Exam: Constitutional; Afebrile, cooperative, alert, not in distress. Eyes- No icterus, , No periorbital swelling Ears- Ext ear normal, hearing normal to conversation. Neck- Midline trachea, supple Respiratory system: Air Entry equal on both sides, No crackles or wheezing, no rhonchi. CVS- Rate rhythm regular, S1,S2 heard, no gallop, no rub. 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 Medical - PN: Obj Da - Labs CBC & Chem 7: 03/09/17 04:30 03/09/17 04:30 Labs: Abnormal Lab Results 03/09/17 03/09/17 03/09/17 14:07 04:30 04:30 RBC 3.82 L RDW 15.4 H Calcium Phosphorus Triglycerides 233 H LDL Cholesterol, Calc Non-HDL Cholesterol Ur Specific [place] Urine Occult Blood >=1.0 A Ur Leukocyte Esterase 250 A Urine RBC 5 H Urine WBC 17 H Ur Squamous Epith Cells 7 H 03/08/17 03/08/17 03/07/17 04:10 04:10 04:50 RBC 3.81 L RDW 15.6 H Calcium Phosphorus 2.5 L Triglycerides 194 H 224 H LDL Cholesterol, Calc 113 H Non-HDL Cholesterol 157 H Ur Specific [place] Urine Occult Blood Ur Leukocyte Esterase Urine RBC Urine WBC Ur Squamous Epith Cells 03/07/17 03/07/17 03/06/17 04:50 04:50 20:07 RBC 3.61 L RDW 15.5 H Calcium 8.5 L Phosphorus Triglycerides 224 H LDL Cholesterol, Calc Non-HDL Cholesterol Ur Specific [place] 1.042 H Urine Occult Blood 0.03 A Ur Leukocyte Esterase Urine RBC 7 H Urine WBC Ur Squamous Epith Cells 03/06/17 14:20 RBC RDW Calcium Phosphorus Triglycerides 222 H LDL Cholesterol, Calc 111 H Non-HDL Cholesterol 155 H Ur Specific [place] Urine Occult Blood Ur Leukocyte Esterase Urine RBC Urine WBC Ur Squamous Epith Cells Meds: Medications Acetaminophen (Tylenol) 650 mg PO Q6HP PRN PRN Reason: PAIN/FEVER > 101 Last Admin: 03/08/17 19:06 Dose: 650 mg Albuterol/Ipratropium (Duoneb) 3 ml NEB Q4HP PRN PRN Reason: Shortness Of Breath Or Wheezing Aspirin (Aspirin) 81 mg PO DAILY [facility] Last Admin: 03/09/17 08:49 Dose: 81 mg Atorvastatin Calcium (Lipitor) 40 mg PO HS [facility] Last Admin: 03/08/17 21:23 Dose: 40 mg Gabapentin (Neurontin) 300 mg PO Q8 [facility] Last Admin: 03/09/17 13:17 Dose: 300 mg Heparin Sodium (Porcine) (Heparin) 5,000 unit SQ Q12 [facility] Last Admin: 03/09/17 08:48 Dose: 5,000 unit Hydromorphone HCl (Dilaudid) 4 mg PO Q4-6HP PRN PRN Reason: Pain Last Admin: 03/09/17 13:17 Dose: 4 mg Ceftriaxone Sodium 2 gm/ (Dextrose) 50 mls @ 100 mls/hr IV Q24H [facility] Lorazepam (Ativan) 1 mg IV Q2-4HP PRN PRN Reason: ANXIETY/SEDATION Last Admin: 03/07/17 20:58 Dose: 1 mg Naloxone HCl (Narcan) 0.1 mg IV Q2MIN PRN PRN Reason: Opiate Reversal Nicotine (Nicoderm) 14 mg TOPICAL DAILY@1000 [facility] Last Admin: 03/09/17 10:16 Dose: 14 mg Ondansetron HCl (Zofran) 4 mg IV Q4HP PRN PRN Reason: Nausea And Vomiting Pantoprazole Sodium (Protonix) 40 mg PO QAMAC [facility] Last Admin: 03/09/17 07:40 Dose: 40 mg Stribild Tablet 1 dose PO DAILY [facility] Last Admin: 03/09/17 08:49 Dose: 1 dose Quetiapine Fumarate (Seroquel) 50 mg PO HS [facility] Last Admin: 03/08/17 21:24 Dose: 50 mg Sertraline HCl (Zoloft) 200 mg PO DAILY [facility] Last Admin: 03/09/17 08:49 Dose: 200 mg Medical - PN: A/P - Time Spent With Patient Total time spent is greater than 50% in coordination of care (as documented) at patient's floor/unit and/or counseling patient: (1) HIV disease Status: Acute Current Visit: No (2) Chronic pain Status: Acute Current Visit: No (3) CVA (cerebral vascular accident) Status: Acute Current Visit: No - Narrative A/P Narrative: A/P CVA: Acute left parietal stroke on CT, and much larger CVA on MRI, no edema, no secondary hemorrhage noted. pt stable, needs rehab, on statin and asa HIV / AIDS supposed to be on haart home dose resumed await cd4 counts. AMS: secondary to CVA vs HIV related. stable at this point, h/o paranoia weeks to months before the patient symptoms started. hiv dementia? chr pain: resumed home dosing, pt does not endorse much pain right ica stenosis: outpatient follow up with IR/ Vascular. Fever/ UTI: IV rocephin for now, await culture, DVT hep sq Diet regular Full Code. Medical - PN: Qual - Stroke Onset of Symptoms Date: 03/03/17 Onset of Symptoms Time: 00:00 Symptom Onset Unknown: No
[2017-03-09] MEDS ORDERED: cefTRIAXone 2 GM in DEXTROSE 5% IN WATER 50 ML IV SCH (16:00)
[2017-03-09] MEDS ORDERED: NALOXONE HCL 0.4 MG/ML VIAL IV PRN (19:21)
[2017-03-09] MEDS ORDERED: IPRATROPIUM/ALBUTEROL 3 ML AMPUL.NEB NEB PRN (19:21)
[2017-03-09] MEDS ORDERED: ACETAMINOPHEN 325 MG TABLET PO PRN (19:21)
[2017-03-09] MEDS ORDERED: ONDANSETRON 4 MG/2 ML VIAL IV PRN (19:21)
[2017-03-09] MEDS ORDERED: ATORVASTATIN 20 MG TABLET PO SCH (21:00)
[2017-03-09] MEDS ORDERED: QUEtiapine 25 MG TABLET PO SCH (21:00)
[2017-03-10] MEDS: HYDROmorphone 2 MG TABLET PO PRN ×2 (00:41→08:58)
[2017-03-10] MEDS: LORazepam 2 MG/ML VIAL IV PRN ×2 (00:41→10:14)
[2017-03-10] MEDS: GABAPENTIN 300 MG CAPSULE PO SCH (05:29)
[2017-03-10 06:07] LABS: Basophils # (Auto) 0 K/mcL (0.0-0.3); Basophils % (Auto) 0.5 % (0.0-2.0); Eosinophils # (Auto) 0.3 K/mcL (0.0-0.7); Granulocytes % (Auto) 45.3 % (38.0-78.0); Lymphocytes # (Auto) 4.4 K/mcL (1.5-4.8); Lymphocytes % (Auto) 42.6 % (15.5-49.0); Mean Cell Volume 100.1 fL (80.0-100.0); Mean Corpuscular HGB Conc 33.3 g/dL (31.0-36.0); Mean Corpuscular Hemoglobin 33.3 pg (26.0-34.0); Monocytes # (Auto) 0.9 K/mcL (0.1-0.9); Monocytes % (Auto) 8.6 % (1.0-12.0); Platelet Count 328 K/mcL (140-440); RBC 3.74 M/mcL (4.00-5.20); Red Cell Distribution Width 15.1 % (11.5-14.5)
[2017-03-10 06:17] LABS: ALT/SGPT 17 U/l (0-40); Albumin 3.5 gm/dL (3.2-5.2); Alkaline Phosphatase 92 U/L (39-117); Bilirubin,Direct < 0.2 mg/dL (0.0-0.3); Blood Urea Nitrogen 19 mg/dl (6-20); Gamma Glutamyl Transpeptidase 35 U/L (5-36); Uric Acid 5.5 mg/dL (2.5-8.0)
[2017-03-10] MEDS ORDERED: PANTOPRAZOLE 40 MG TABLET PO SCH (07:30)
[2017-03-10] MEDS ORDERED: STRIBILD TABLET PO SCH (09:00)
[2017-03-10] MEDS ORDERED: cefTRIAXone 2 GM in DEXTROSE 5% IN WATER 50 ML IV SCH (09:00)
[2017-03-10] MEDS ORDERED: SERTRALINE 50 MG TABLET PO SCH (09:00)
[2017-03-10] MEDS ORDERED: amLODIPine 5 MG TABLET PO SCH ×2 (09:00→09:40)
[2017-03-10] MEDS ORDERED: ASPIRIN 81 MG TAB.CHEW PO SCH (09:00)
[2017-03-10] MEDS: HEPARIN 5,000 UNIT/ML VIAL SQ SCH (09:02)
[2017-03-10] MEDS ORDERED: cloNIDine HCL 0.1 MG TABLET PO SCH (09:45)
--- NOTE | 2017-03-10 09:49 | Discharge Summary ---
Medical - DS: Prov Patient information: Note initiated : 03/10/17 at 9:44 am Service Date, if different from initiated Date: [] Patient: Cindy Almeida 51 y/o F admitted on 03/06/17 for Stroke Symptoms, Expressive Aphasia. Chief Complaint: [] Date of admission: 03/06/17 21:10 Discharge date: 03/10/17 Primary care physician: Palma Mullen Consults: 03/06/17 Consult to Physician [CONS] Stat Comment: Consulting Provider: Tolu Vu Reason For Exam: Physician to Consult Medical - DS: Meds - Discharge Medications Prescriptions: Cefuroxime [Ceftin] 500 mg PO BID #10 tab Elviteg/Iva/Emtric/Tenofo Dis [Stribild Tablet] 1 each PO DAILY #30 tablet HYDROmorphone HCL [Dilaudid] 4 mg PO Q4 PRN #40 tab PRN Reason: Severe Pain Active and Home Medications: Home Medications No Known Home Meds [No Known Home Meds] 03/06/17 [History Confirmed 03/06/17 Last Taken Unknown] Medical - DS: Hosp Hospital course: Ms. Almeida is a 51 year old Female with h/o HIV/ AIDS, chr back pain issues, presented to the ER this afternoon after being unable to comprehend and unable to express her self. The patient brother was the primary history give to the ER. The patient was able to answer some questions but was mostly unable to provide a meaningful history. According to chart review, the patient has been more confused and not her self over the last 3-4 days, she gambled away a significant amount. Her brother was called when someone noted that she was not making much sense on the telephone. The patient was therefore brought to the ER for further evaluation. In the ER she had a CT head done which showed acute CVA in the Moderate size acute infarct in the left parietal lobe, tele stroke was called and they did not feel pt needed tpa or any intervention. CVA: Patient has left parietal lobe CVA, not candidate for tpa or intervention as per Tele stroke team, MRI showed CVA larger than noted on CT. Patient has right sided ICA stenosis which needs to be followed up by vascular as outpatient. Patient has no gross neurological motor deficits, but has difficulty in some comphrension as well as anomia. She is started on ASA as well as statin. She needs rehab [facility] The patient echo, tele was neg for possible etiology of CVA. 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 HTN: patient has elevated bp after her CVA, its been around a week now, and her bp fluctuates significantly. goal bp is > 140/90 and I expect her bp to come down gradually without significant intervention. A few times though her bp has been > 180 and diastolic > 100 therefor I have started her on amlodipine 5mg once dialy. Should her bp drop to < 140 we can cut the dose of amlodipine to 2.5mg HIV/ AIDS: H/o same, cd4 levels were ordered but not returned, she remains on haart treatment, which needs to be continued. UTI: The patient had low grade temp in the hospital CXR neg, ua positive for uti , responded well to rocephin, urine cx neg, plan for oral antibiotics x 5-7 days. Chr pain: patient has DJD of spine, as well as disc proloapse, and is on dilaudid 4mg orally q4-6 hrs, Not needing much pain meds while in the hospital. Will continue her home dose at discharge on as needed basis. The rest of the stay in the hospital was uneventful. Discharge diagnosis: cva, uti,HTN, hiv aids - Time Spent with Patient Total time spent providing and/or coordinating discharge services: Greater than 30 minutes Medical - DS: Exam - Constitutional Vitals: Vital Signs Temp Pulse Resp BP BP Pulse Ox 03/10/17 08:15 203/99 03/10/17 08:00 97.2 F 16 170/116 98 03/10/17 04:00 98.6 F 74 18 150/87 93 03/10/17 01:00 67 142/86 96 03/09/17 23:38 98.0 F 75 16 189/105 95 03/09/17 20:00 97.9 F 70 18 152/92 96 03/09/17 18:29 72 03/09/17 16:00 98.2 F 71 18 155/90 94 03/09/17 12:00 98.4 F 73 20 140/86 96 Intake and Output 03/09/17 03/10/17 03/10/17 21:59 05:59 13:59 Intake Total 610 / 610 400 / 400 440 / 440 Output Total 310 / 310 100 / 100 Balance 300 / 300 300 / 300 440 / 440 Intake: IV 50 / 50 Rocephin 2 gm In Dextrose 5% in 50 / 50 Water 50 ml @ 100 mls/hr IV DAILY [facility] Rx#:[id number] Oral 560 / 560 400 / 400 440 / 440 Output: Void Amount 310 / 310 100 / 100 Other: Meal Dinner Breakfast Percent of Meal Consumed 75% 100% Feeding Ability Assist with Tray Set Up Independent # Voids 3 # Bowel Movements 1 Weight 171 lb Additional comments: Constitutional; Afebrile, cooperative, alert, not in distress. Eyes- No icterus, , No periorbital swelling Ears- Ext ear normal, hearing normal to conversation. Neck- Midline trachea, supple Respiratory system: Air Entry equal on both sides, No crackles or wheezing, no rhonchi. CVS- Rate rhythm regular, S1,S2 heard, no gallop, no rub. 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 Medical - DS: Data Procedures and tests throughout hospitalization: Head CT Impression: Moderate size acute infarct in the left parietal lobe Head Neck CTA Impression: Hypoperfusion of the left parietal lobe due to diminished circulation in the posterior third order branches of the left middle cerebral artery. 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 This involves [facility]'s speech [facility] which would account for the aphasia. CXR chest IMPRESSION: Mild atelectasis or pneumonia in the lingula Echo LV normal size, LV wall thickness upper limit of normal, borderline reduced systoilc function LA borderline dilated. Labs on day of discharge: Labs from last 24 hours 03/10/17 03/10/17 03/09/17 04:17 04:17 14:07 WBC 10.4 RBC 3.74 L Hgb 12.5 Hct 37.5 MCV 100.1 H MCH 33.3 MCHC 33.3 RDW 15.1 H Plt Count 328 MPV 8.7 Gran % 45.3 Lymph % (Auto) 42.6 Wheeler % (Auto) 8.6 Eos % (Auto) 3.0 Baso % (Auto) 0.5 Gran # 4.7 Lymph # (Auto) 4.4 Wheeler # (Auto) 0.9 Eos # (Auto) 0.3 Baso # (Auto) 0 Sodium 138 Potassium 4.2 Chloride 99 Carbon Dioxide 25 Anion Gap 14.0 BUN 19 Creatinine 0.7 GFR Calculation 99 Glucose 92 Uric Acid 5.5 Calcium 9.0 Phosphorus 4.2 Magnesium 2.0 Total Bilirubin 0.2 Direct Bilirubin < 0.2 GGT 35 AST 19 ALT 17 Alkaline Phosphatase 92 Lactate Dehydrogenase 168 Total Protein 6.9 Albumin 3.5 Globulin 3.4 Albumin/Globulin Ratio 1.0 Triglycerides 213 H Procalcitonin Urine Color Yellow Urine Appearance Hazy Urine pH 5.0 Ur Specific Lillian 1.020 Urine Protein Neg Urine Glucose (UA) Negative Urine Ketones Neg Urine Occult Blood >=1.0 A Urine Nitrate Neg Urine Bilirubin Neg Urine Urobilinogen Neg Ur Leukocyte Esterase 250 A Urine RBC 5 H Urine WBC 17 H Ur Squamous Epith Cells 7 H Ur Transition Epith Cell < 1 Urine Bacteria 0 Urine Mucus Few 03/09/17 12:17 WBC RBC Hgb Hct MCV MCH MCHC RDW Plt Count MPV Gran % Lymph % (Auto) Wheeler % (Auto) Eos % (Auto) Baso % (Auto) Gran # Lymph # (Auto) Wheeler # (Auto) Eos # (Auto) Baso # (Auto) Sodium Potassium Chloride Carbon Dioxide Anion Gap BUN Creatinine GFR Calculation Glucose Uric Acid Calcium Phosphorus Magnesium Total Bilirubin Direct Bilirubin GGT AST ALT Alkaline Phosphatase Lactate Dehydrogenase Total Protein Albumin Globulin Albumin/Globulin Ratio Triglycerides Procalcitonin < 0.05 Urine Color Urine Appearance Urine pH Ur Specific Lillian Urine Protein Urine Glucose (UA) Urine Ketones Urine Occult Blood Urine Nitrate Urine Bilirubin Urine Urobilinogen Ur Leukocyte Esterase Urine RBC Urine WBC Ur Squamous Epith Cells Ur Transition Epith Cell Urine Bacteria Urine Mucus Preliminary micro results at discharge 03/09/17 14:07 Urine Culture - Preliminary Urine - Clean Void [facility] Medical - DS: A/P - Patient/Caregiver Discharge Instructions Activity: as per physical therapy, increase activity as tolerated Diet: Cardiac Additional Instructions: OT/PT/ST eval and treat at the rehab center Follow up with Dr Guerrero in 3-4 weeks for evaluation of Right carotid stenosis after discharge from rehab. Follow up with Neurology Dr Nobles in 2-4 weeks after discharge from rehab Follow up with PCP after discharge from the rehab facility Go to the ER if worsening symptoms or new symptoms suggestive of cva, chest pain , shortness of breath or any other concerning symptom. Prescriptions: Cefuroxime [Ceftin] 500 mg PO BID #10 tab Elviteg/Iva/Emtric/Tenofo Dis [Stribild Tablet] 1 each PO DAILY #30 tablet HYDROmorphone HCL [Dilaudid] 4 mg PO Q4 PRN #40 tab PRN Reason: Severe Pain Other Amb Orders: OT Discharge Order Location: Determined By Patient Physical Therapy at Discharge - General Location: Determined By Patient ST Discharge Order Location: Determined By Patient - Problem Maintenance (1) HIV disease Status: Acute (2) Chronic pain Status: Acute (3) CVA (cerebral vascular accident) Status: Acute Qualifiers: CVA mechanism: stenosis Precerebral and cerebral artery: unspecified cerebral artery Qualified Code(s): I63.50 - Cerebral infarction due to unspecified occlusion or stenosis of unspecified cerebral artery - Follow up Plan Follow up with: Heidi Vidal MD [Physician] - (Call/schedule follow up 2-4 after discharge from rehab hospital.) Palma Mullen MD [Primary Care Provider] - (call/schedule follow up for one week after discharge from rehab hospital.) Haris Guerrero MD [Physician] - (call/schedule follow up for carotid stenosis 3-4 weeks after discharge from rehab hospital.) Disposition: [facility] Prognosis: Fair Rehab Potential: Fair I certify that the patient requires SNF services: Yes Overall status at discharge: patient is progressing back to baseline
[2017-03-10] MEDS ORDERED: NICOTINE 14 MG PATCH TOPICAL SCH (10:00)
[2017-03-10] MEDS ORDERED: PNEUMOCOCCAL 23-VAL P-SAC VAC 0.5 ML VIAL IM ONE (11:00)
[2017-03-10] MEDS ORDERED: FLU VACC QS2017-18 36MOS UP/PF 60 MCG/0.5 ML SYRINGE IM ONE (11:00)
[2017-03-10 12:04] LABS: Absolute Lymphocytes 4789 cells/uL (850-3900); CD4 Percentage 47 % (30-61); CD8 Percentage 25 % (12-42); CD8, Absolute 1210 cells/uL (180-1170)
== END 2017-03-10 11:20 | disposition short-term general hospital (02) | DRG 64 ==
LOC: ED 14:12 → ICU 21:10 → MEDSUR 03-09 19:49
PROVIDERS: ADMIT Internal Medicine; ATTEND Internal Medicine